=== PATIENT | male | born 1955 | race African-American/Black ===

== ENCOUNTER 2018-04-21 12:23 | Emergency (ER) | payer SELFPAY ==
[2018-04-21 12:39] VITALS: BMI 32.5
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
[2018-04-21 14:29] LABS: URINE APPEARANCE CLEAR; URINE BILIRUBIN NEGATIVE (<2.0 mg/dL); URINE GLUCOSE (UA) NEGATIVE (NEGATIVE); URINE KETONE NEGATIVE (NEGATIVE); URINE LEUK ESTERASE NEGATIVE (NEGATIVE); URINE NITRITE NEGATIVE (NEGATIVE); URINE PROTEIN NEGATIVE (NEGATIVE); URINE UROBILINOGEN 4.0 E.U/dl mg/dL (0.2-1.0)
[2018-04-21 14:30] LABS: URINE COLOR DK YELLOW
--- NOTE | 2018-04-21 14:31 | PDOC ---
History of Present Illness - General Chief Complaint: Pain Stated Complaint: PCP SENT/PAIN, PENIS PAIN/SWEELING Time Seen by Provider: 04/21/18 13:43 History Source: Patient, Old Records - History of Present Illness Initial Comments: 04/21/18 14:27 Pt is a 62yo m with PMH of HIV noncompliant with HIV meds for the past 4 months presenting to ED with complaints of swelling in the penis. Pt said 2 days ago he went in the shower and noticed that his penis was swollen and it has been getting worse. He is now endorsing pain. This has never happened to the patient before. He denies use of ED meds, injection or constrictor use. Pt states it also "stings" when he urinates. He also says that he may have a sore on his penis. He admits to gonorrhea in the past. He denies recent STD. Only sexually active with his . Uses condoms. He denies rash, fevers, chest pain, SOB, sore throat, rashes, joint pains, abdominal pain, n/v/d, hematuria, blood in stools. PMD: [facility] PMH: see hpi PSH: DEMETRICE in '76 Meds: Past History - Past Medical History Allergies/Adverse Reactions: Allergies Allergy/AdvReac Type Severity Reaction Status Date / Time No Known Allergies Allergy Verified 04/21/18 16:44 Home Medications: Ambulatory Orders Aspirin [Aspirin EC] 81 mg PO DAILY #30 tablet. 08/22/17 Raltegravir [Isentress] 400 mg PO BID #60 tab 08/22/17 Abacavir Sulfate [Ziagen -] 300 mg PO BID #60 tablet 03/02/18 Darunavir/Cobicistat [Prezcobix 800 mg-150 mg Tablet] 1 each PO DAILY #30 tablet 03/02/18 Multivitamins [Multivit ([facility] Formulary)] 1 tab PO DAILY #30 tab 03/02/18 Sulfamethoxazole/Trimethoprim [Bactrim Ds -] 1 tab PO DAILY #30 tablet 03/02/18 Anemia: Yes Asthma: No Cancer: No Cardiac Disorders: No CVA: No COPD: No CHF: No Dementia: No Diabetes: No GI Disorders: No Disorders: No HTN: Yes Hypercholesterolemia: No Liver Disease: No Seizures: Yes (1990s, hx coma ) Thyroid Disease: No - Suicide/Smoking/Psychosocial Hx Smoking History: Former smoker Have you smoked in the past 12 months: No Number of Cigarettes Smoked Daily: 12 If you are a former smoker, when did you quit?: 07/2017 Cigars Per Day: 0 Information on smoking cessation initiated: No Hx Alcohol Use: No Drug/Substance Use Hx: No Substance Use Type: Cocaine, Heroin Hx Substance Use Treatment: Yes Review of Systems - Review of Systems Constitutional: No: Symptoms Reported HEENTM: No: Symptoms Reported Respiratory: No: Symptoms reported Cardiac (ROS): No: Symptoms Reported ABD/GI: No: Symptoms Reported : Yes: See HPI, Burning, Other (penile glans swelling with erythema and ulceration). No: Dysuria, Discharge, Frequency, Urgency, Testicular Mass, Testicular Swelling, Testicular Pain Musculoskeletal: No: Symptoms Reported Integumentary: No: Symptoms Reported Neurological: No: Symptoms reported *Physical Exam - Vital Signs Last Vital Signs Temp Pulse Resp BP Pulse Ox 98.3 F 74 19 144/88 100 04/21/18 12:36 04/21/18 12:36 04/21/18 12:36 04/21/18 12:36 04/21/18 12:36 - Physical Exam General Appearance: Yes: Nourished, Appropriately Dressed. No: Apparent Distress HEENT: positive: EOMI, DEVON, Normal ENT Inspection Neck: positive: Trachea midline, Supple. negative: Lymphadenopathy (R), Lymphadenopathy (L) Respiratory/Chest: positive: Lungs Clear, Normal Breath Sounds. negative: Crackles, Rales, Rhonchi Cardiovascular: positive: Regular Rhythm, Regular Rate, S1, S2. negative: Edema , JVD, Murmur Vascular Pulses: Carotid (R): 2+, Carotid (L): 2+, Dorsalis-Pedis (R): 2+, Doralis-Pedis (L): 2+ Gastrointestinal/Abdominal: positive: Normal Bowel Sounds, Soft. negative: Tenderness Male Genitalia: positive: other (swollen and erythematous glans penis with retracted foreskin. superficial ulcerations on tip. ). negative: testicular tenderness, testicular mass, epididymus tender Musculoskeletal: positive: Normal Inspection. negative: CVA Tenderness Extremity: positive: Normal Capillary Refill Integumentary: positive: Normal Color, Dry, Warm. 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 Vitals: Selected Entries 04/21/18 12:36 Temperature 98.3 F Pulse Rate 74 Respiratory 19 Rate Blood Pressure 144/88 O2 Sat by Pulse 100 Oximetry (%) PE: swollen and erythematous glans penis, not reducing with ulcerations. retracted foreskin. DDx: paraphimosis. Consulted Dr. Clark. Said to send pt to office across street right away. pt is ambulatory, no acute distress. Will send across street for reduction. Labs drawn earlier today. HIV status pending. All other labs wnl. Pt agreed to plan. *DC/Admit/Observation/Transfer Diagnosis at time of Disposition: Paraphimosis - Discharge Dispostion Condition at time of disposition: Stable Decision to Admit order: No - Referrals Referrals: Jaime Lance MD., MD [Staff Physician] - - Patient Instructions Printed Discharge Instructions: DI for Paraphimosis Additional Instructions: You were seen here today for paraphimosis. I consulted the urologist and he wants to see you right now in his office. You will be seeing Dr. Lance [address] [address] Please go there right away. Come back to the emergency room if there is more pain, swelling does not go down , or if any new concerning symptom develops. Thank you - Post Discharge Activity
[2018-04-21 15:06] LABS: EOS % 3.1 % (0-4.5); HEMATOCRIT 45.9 % (35.4-49); HEMOGLOBIN 15.2 GM/dL (11.7-16.9); LYMPH % 38.2 % (8-40); MCH 27.1 pg (25.7-33.7); MCHC 33.1 g/dl (32.0-35.9); MEAN CELL VOLUME 81.8 fl (80-96); MEAN PLT VOLUME 8.3 fl (7.5-11.1); MONO % 6.8 % (3.8-10.2); NEUT % 50.9 % (42.8-82.8); PLATELET COUNT 182 K/MM3 (134-434); RBC 5.61 M/mm3 (4.00-5.60); RDW 14.5 % (11.9-15.9); WHITE BLOOD COUNT 6.3 K/mm3 (4.0-10.0)
[2018-04-21 15:16] LABS: INR 1.08 (0.83-1.09); PROTHROMBIN TIME (PATIENT) 12.8 SEC (9.7-13.0)
[2018-04-21 15:19] LABS: ACTIVATED PTT 32.3 SECONDS (25.2-36.5)
[2018-04-21 15:26] LABS: ALBUMIN 3.8 g/dl (3.4-5.0); ALK PHOS 99 U/L (45-117); ANION GAP 11 MMOL/L (8-16); BILIRUBIN,TOTAL 0.7 mg/dL (0.2-1); BLOOD UREA NITROGEN 13 mg/dL (7-18); CALCIUM 8.4 mg/dL (8.5-10.1); CHLORIDE 109 mmol/L (98-107); CO2 24 mmol/L (21-32); GLUCOSE,RANDOM 86 mg/dL (74-106); SGOT/AST 22 U/L (15-37); SGPT/ALT 22 U/L (13-61); SODIUM 144 mmol/L (136-145); TOT PROT 8.2 g/dl (6.4-8.2)
[2018-04-21 15:31] VITALS: BP 142/89; PULSE 73; TEMP 97.8
== END 2018-04-21 15:15 | disposition home or self-care (01) ==
LOC: JER 12:23
DX: N47.2 Paraphimosis (principal); Z21 Asymptomatic human immunodeficiency virus [HIV] infection status; I10 Essential (primary) hypertension; Z87.891 Personal history of nicotine dependence; R56.9 Unspecified convulsions; D64.9 Anemia, unspecified
CPT/HCPCS: 36415; 80053; 81003; 85025; 85610; 85730; 87086; 99281-25

== ENCOUNTER 2018-04-21 16:38 | Emergency (ER) | payer SELFPAY ==
--- NOTE | 2018-04-21 16:43 | PDOC ---
Rapid Medical Evaluation Chief Complaint: Back Pain Time Seen by Provider: 04/21/18 16:41 Medical Evaluation: Allergies Allergy/AdvReac Type Severity Reaction Status Date / Time No Known Allergies Allergy Verified 04/21/18 12:39 04/21/18 16:41 pt c/o: penile swelling and pain, Pt was to see to urologist upon d/c from ED today but was told the MD DOES NOT ACCEPT HIS INSURANCE. Pt denies dysuria or hematuria pt on brief exam: vss Pt ordered for: none pt to proceed to the ED Discharge Disposition - Diagnosis Paraphimosis - Referrals - Patient Instructions - Post Discharge Activity
[2018-04-21 16:44] VITALS: BP 133/92; PULSE 85; TEMP 98.5; BMI 32.5
--- NOTE | 2018-04-21 17:19 | PDOC ---
Attending Attestation - Resident Resident Name: Amanda Munson - ED Attending Attestation I have performed the following: I have examined & evaluated the patient, The case was reviewed & discussed with the resident, I agree w/resident's findings & plan, Exceptions are as noted - HPI HPI: 04/21/18 17:18 62 yo M who returns to the ER after being sent to the Urologist's office where his insurance was not accepted and he was sent back to the ER for evaluation of his Paraphimosis Please see prior chart for more details - Physicial Exam PE: 04/21/18 17:18 Paraphymosis Please see prior chart from earlier today - Medical Decision Making 04/21/18 17:18 consult pending Pt seen by dr Lance in the ER Paraphymosis reduced by Dr Lance Pt discharged Will need follow up for possible circumcision
--- NOTE | 2018-04-21 17:32 | PDOC ---
History of Present Illness - General Chief Complaint: Back Pain Stated Complaint: PENILE PAIN Time Seen by Provider: 04/21/18 16:41 History Source: Patient Exam Limitations: No Limitations - History of Present Illness Initial Comments: 04/21/18 17:31 Pt is a 62yo m with PMH of HIV noncompliant with HIV meds for the past 4 months presenting to ED with complaints of swelling in the penis. Pt said 2 days ago he went in the shower and noticed that his penis was swollen and it has been getting worse. Pt was sent to [address] [place] [address] urology for reduction however there were problems with insurance, pt was sent back here for reduction. Pt says he thinks he may have this problem because he masturbates and the foreskin may not have returned back to normal position. Past History - Past Medical History Allergies/Adverse Reactions: Allergies Allergy/AdvReac Type Severity Reaction Status Date / Time No Known Allergies Allergy Verified 04/21/18 16:44 Home Medications: Ambulatory Orders Aspirin [Aspirin EC] 81 mg PO DAILY #30 tablet. 08/22/17 Raltegravir [Isentress] 400 mg PO BID #60 tab 08/22/17 Abacavir Sulfate [Ziagen -] 300 mg PO BID #60 tablet 03/02/18 Darunavir/Cobicistat [Prezcobix 800 mg-150 mg Tablet] 1 each PO DAILY #30 tablet 03/02/18 Multivitamins [Multivit ([facility] Formulary)] 1 tab PO DAILY #30 tab 03/02/18 Sulfamethoxazole/Trimethoprim [Bactrim Ds -] 1 tab PO DAILY #30 tablet 03/02/18 Anemia: No Asthma: No Cancer: No Cardiac Disorders: No CVA: No COPD: No CHF: No Dementia: No Diabetes: No GI Disorders: No Disorders: No HTN: Yes Hypercholesterolemia: No Liver Disease: No Seizures: Yes (1990s, hx coma ) Thyroid Disease: No - Suicide/Smoking/Psychosocial Hx Smoking History: Former smoker Have you smoked in the past 12 months: Yes Number of Cigarettes Smoked Daily: 12 If you are a former smoker, when did you quit?: 07/2017 Cigars Per Day: 0 Information on smoking cessation initiated: Yes 'Breaking Loose' booklet given: 04/21/18 Hx Alcohol Use: No Drug/Substance Use Hx: No Substance Use Type: Cocaine, Heroin Hx Substance Use Treatment: Yes Review of Systems - Review of Systems Constitutional: No: Symptoms Reported HEENTM: No: Symptoms Reported Respiratory: No: Symptoms reported Cardiac (ROS): No: Symptoms Reported ABD/GI: No: Symptoms Reported : Yes: See HPI Musculoskeletal: No: Symptoms Reported Integumentary: No: Symptoms Reported Neurological: No: Symptoms reported *Physical Exam - Vital Signs Last Vital Signs Temp Pulse Resp BP Pulse Ox 98.5 F 85 19 133/92 100 04/21/18 16:41 04/21/18 16:41 04/21/18 16:41 04/21/18 16:41 04/21/18 16:41 - Physical Exam General Appearance: Yes: Nourished, Appropriately Dressed. No: Apparent Distress HEENT: positive: EOMI, DEVON, Normal ENT Inspection Neck: positive: Trachea midline, Supple Respiratory/Chest: positive: Lungs Clear, Normal Breath Sounds Cardiovascular: positive: Regular Rhythm, Regular Rate, S1, S2, Edema, JVD Vascular Pulses: Carotid (R): 2+, Carotid (L): 2+, Dorsalis-Pedis (R): 2+, Doralis-Pedis (L): 2+ Gastrointestinal/Abdominal: positive: Normal Bowel Sounds, Soft Male Genitalia: positive: other (glans penis erythematuos and swollen. with ulcerations. ). negative: testicular tenderness, testicular mass Musculoskeletal: positive: Normal Inspection. 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 Dr. Lance came to ED. Reduced paraphimosis. Suggested pt follow up with urology and recommended circumcision. Pt can otherwise apply bacitracin to ulcerations and needs to unfold foreskin if retracted. Pt agreed to plan. *DC/Admit/Observation/Transfer Diagnosis at time of Disposition: Paraphimosis - Discharge Dispostion Disposition: HOME Condition at time of disposition: Improved Decision to Admit order: No - Referrals Referrals: Jaime Lance MD., MD [Staff Physician] - - Patient Instructions Printed Discharge Instructions: DI for Paraphimosis Additional Instructions: You were seen here today for paraphimosis. It was reduced. Make sure to keep the area clean and dry. Whenever the foreskin is pulled back, make sure it is placed back. The urologist recommends getting a circumcision. Come back to the ED if: pain gets worse, swelling returns, or if any new concerning symptom develops. Thank you - Post Discharge Activity
--- NOTE | 2018-04-21 17:47 | CON.GU ---
Consult Consult Specialty:: Urology Referred by:: ER Reason for Consultation:: 62 yo male w 3 days paraphimosis w increasing pain and inability to bring foreskin over - Alcohol/Substance Use Hx Alcohol Use: No - Smoking History Smoking history: Former smoker Have you smoked in the past 12 months: Yes Aproximately how many cigarettes per day: 12 If you are a former smoker, when did you quit?: 07/2017 Home Medications - Allergies Allergies/Adverse Reactions: Allergies Allergy/AdvReac Type Severity Reaction Status Date / Time No Known Allergies Allergy Verified 04/21/18 16:44 - Home Medications Home Medications: Ambulatory Orders Aspirin [Aspirin EC] 81 mg PO DAILY #30 tablet. 08/22/17 Raltegravir [Isentress] 400 mg PO BID #60 tab 08/22/17 Abacavir Sulfate [Ziagen -] 300 mg PO BID #60 tablet 03/02/18 Darunavir/Cobicistat [Prezcobix 800 mg-150 mg Tablet] 1 each PO DAILY #30 tablet 03/02/18 Multivitamins [Multivit ([facility] Formulary)] 1 tab PO DAILY #30 tab 03/02/18 Sulfamethoxazole/Trimethoprim [Bactrim Ds -] 1 tab PO DAILY #30 tablet 03/02/18 Family Disease History - Family Disease History Family Disease History: Other: Grandparent (unk), Father (mostly unk hx ), Mother ( in 70s, hx etoh), Brother (3), Sister (1), Son ( - dec'd age 22 yrs trauma), Daughter (1) Physical Exam- Vital Signs: Vital Signs Temperature 98.5 F 04/21/18 16:41 Pulse Rate 85 04/21/18 16:41 Respiratory Rate 19 04/21/18 16:41 Blood Pressure 133/92 04/21/18 16:41 O2 Sat by Pulse Oximetry (%) 100 04/21/18 16:41 Problem List - Problems (1) Paraphimosis Assessment/Plan: paraphimosis for 3 days reduced after 30 min of applying pressure and gradually moving skin over apply bacitracin twice daily for 7 daily rec circumcision Code(s): N47.2 - PARAPHIMOSIS
== END 2018-04-21 17:56 | disposition home or self-care (01) ==
LOC: JER 16:38
DX: N47.2 Paraphimosis (principal); Z21 Asymptomatic human immunodeficiency virus [HIV] infection status; I10 Essential (primary) hypertension; R56.9 Unspecified convulsions; D64.9 Anemia, unspecified; Z87.891 Personal history of nicotine dependence
CPT/HCPCS: 99281-25

== ENCOUNTER 2018-11-07 10:28 | Emergency (ER) | payer OTHER | END 2018-11-07 11:00 | disposition home or self-care (01) | LOC: JERFT 10:28 ==

== ENCOUNTER → 2019-02-07 | Outpatient (CLI) | payer OTHER | LOC: YHH 15:23 ==